=== PATIENT | male | born 1965 | race Caucasian/White ===

== ENCOUNTER → 2016-10-16 | Outpatient (CLI) | payer BC ==
[2015-08-06 13:50] VITALS: BP 120/60
[~2016-10-16] MED LIST: ALLO300T PO; FLUT1DIS IH; LEVO50TA5 PO; OLME1TAB27 PO; VENTOLIN HFA18 GM IH
== END | disposition home or self-care (01) ==
LOC: LAB 11:30
PROVIDERS: ATTEND Nurse Practitioner Occupational Health
DX: N40.1 Benign prostatic hyperplasia with lower urinary tract symptoms (principal)
CPT/HCPCS: 36415; G0103

== ENCOUNTER 2016-11-05 05:59 | Day surgery (SDC) | payer BC ==
[~2016-11-05] VITALS: Ht 167.6 cm; Wt 86.2 kg
[~2016-11-05 05:59] MED LIST changes: +IBUP200T43 PO; +MONT10TA9 PO
[2016-11-05] MEDS ORDERED: CEFAZOLIN 1GM IVPB FOR OMNI 50 ML IV ONE (06:00)
[2016-11-05] MEDS ORDERED: ONDANSETRON PF 4 MG/2 ML VIAL. IV PRN ×2 (07:00)
[2016-11-05] MEDS ORDERED: HYDROMORPHONE 2 MG/ML VIAL. IV PRN ×2 (07:00)
[2016-11-05] MEDS ORDERED: MORPHINE SULFATE 2 MG/ML DISP.SYRIN. IV PRN ×2 (07:00)
[2016-11-05] MEDS ORDERED: IV RINGERS,LACTATED 1000ML 1,000 ML IV SCH ×2 (07:00)
[2016-11-05] MEDS ORDERED: LIDOCAINE 1% 1 ML SYRINGE. ID PRN ×2 (07:00)
[2016-11-05] MEDS ORDERED: PROCHLORPERAZINE 10 MG/2 ML VIAL. IV PRN ×2 (07:00)
[2016-11-05] MEDS ORDERED: FENTANYL PF 100 MCG/2 ML VIAL. IV PRN ×4 (07:00)
[2016-11-05] MEDS ORDERED: DEXAMETHASONE SOD PHOS 20 MG/5 ML VIAL. ONE ×2 (07:40→08:24)
[2016-11-05] MEDS ORDERED: ROPIVacaine 0.5% PF 30 ML VIAL. ONE (07:40)
[2016-11-05] MEDS ORDERED: MIDAZOLAM HCL 2 MG/2 ML VIAL. ONE (07:40)
[2016-11-05] MEDS ORDERED: LIDOCAINE 1% Multi-Dose 20 ML VIAL. ONE (07:40)
[2016-11-05] MEDS ORDERED: EPINEPHRINE 30 MG/30 ML VIAL. ONE (07:49)
[2016-11-05] MEDS ORDERED: BUPIVACAINE MPF 0.5% 30 ML VIAL. ONE (07:49)
[2016-11-05] MEDS ORDERED: LIDOCAINE 1% PF 30 ML VIAL. ONE (07:49)
--- NOTE | 2016-11-05 08:04 | DISCH ---
DISCHARGE INSTRUCTIONS Condition on Discharge Condition on Discharge: Stable Activity After Discharge Activity Instructions for Disc: Other, see below Other activity instructions: arm to remain Bathing Instructions: Shower-keep dressing dry Weight Bearing Status after Di: Non weight bearing Diet after Discharge Diet after Discharge: Regular Wound Incision Care Wound/Incision Care: Ice to area for comfort, Change dressing Contacting the DRQuique after DC Call your doctor for: Concerns you may have Follow-Up Follow up with: María in 2wks MIGUEL POWER II, MD Nov 05, 2016 08:04
--- NOTE | 2016-11-05 08:10 | PDOC ---
BRIEF OPERATIVE NOTE Date: Nov 05, 2016 Pre-Op Diagnosis R RTC tear Post-Op Diagnosis same Procedure Performed R shoulder scope, RTC repair Surgeon María Armas Anesthesia Type: General Blood Loss 10mL Complications none MIGUEL POWER II, MD Nov 05, 2016 08:10
[2016-11-05] MEDS ORDERED: ONDANSETRON PF 4 MG/2 ML VIAL. ONE (08:24)
[2016-11-05] MEDS ORDERED: LIDOCAINE 2% 100 MG/5 ML DISP.SYRIN. ONE (08:24)
[2016-11-05] MEDS ORDERED: PROPOFOL 20 ML IV ONE (08:24)
[2016-11-05] MEDS ORDERED: PHENYLEPHRINE in 0.9% NACL PF 1 MG/10 ML DISP.SYRIN. IV ONE (09:00)
[2016-11-05] MEDS ORDERED: SEVOFLURANE 61 TO 120 MINUTES. IH ONE (09:22)
[2016-11-05] MEDS ORDERED: ROCURONIUM 50 MG/5 ML VIAL. ONE (09:23)
[2016-11-05] MEDS ORDERED: NEOSTIGMINE METHYLSULFATE 5 MG/5 ML SYRINGE. ONE (09:23)
[2016-11-05] MEDS ORDERED: GLYCOPYRROLATE 1 MG/5 ML VIAL. ONE (09:23)
[2016-11-05] MEDS ORDERED: OXYC-323 PO (09:58)
[2016-11-05] MEDS ORDERED: ONDA4TAB10 SL (10:00)
[2016-11-05] MEDS ORDERED: DOCU-27 PO (10:01)
[2016-11-05] MEDS ORDERED: OXYCODONE/APAP 5/325 TABLET. PO ONE ×2 (10:15)
[2016-11-05 11:00] VITALS: BP 110/65
--- NOTE | 2016-11-05 11:54 | OP ---
DATE OF SURGERY: 11/05/2016 SURGEON: Todd Power M.D. FINISH PHOTOGRAPHER: Alexia Armas. ANESTHESIA: General plus regional nerve block. PREOPERATIVE DIAGNOSIS: Right shoulder rotator cuff tear. POSTOPERATIVE DIAGNOSIS: Right shoulder rotator cuff tear. PROCEDURE PERFORMED: Arthroscopic rotator cuff repair. COMPONENTS INSERTED: Levy [employer] Nephew large, 1.9 mm, SUTUREFIX anchors. COMPLICATIONS: None. ESTIMATED BLOOD LOSS: 10 mL. FINDINGS: 1. The patient had some degenerative fraying at his labrum, but his superior labrum was attached. He had a prominent middle glenohumeral ligament. Remainder of his labrum was intact circumferentially. He had no pathological changes at glenoid or humeral head. 2. Biceps had some minor fraying, but demonstrated gross integrity on inspection. 3. No loose bodies and subcoracoid axillary recesses. 4. He had a full thickness tear of the supraspinatus involving the entire tendon. COMPLICATIONS: None. REASON FOR PROCEDURE: The patient is a very pleasant 51-year-old gentleman with persistent shoulder pain that failed physical therapy and an injection. Because of this and after clinical examination and review of the MRI, we had discussion of risks, benefits, alternatives of proceeding with the above surgery and he elected to proceed. DESCRIPTION OF PROCEDURE: The patient was greeted in the preoperative area by myself where the correct extremity was marked and verified. He was taken to the operative suite and antibiotics were started en route. Once in the OR, he was transferred gently supine to the OR table and then had successful induction of general anesthesia. It should be noted that prior to coming back to the OR, he had placement of regional nerve block by the anesthesiology team. Once in the OR and on the bed, we then set him up in a modified beach chair position with all pressure points padded. A C-spine was maintained in neutral position. After this, we proceeded to prep and drape the right upper extremity in our usual sterile fashion including Ioban around the periphery. We then conducted a standard preoperative timeout. After this, I palpated and marked the surface anatomy. I then gained entry to the glenohumeral joint with a spinal needle to posterosuperior portal. I then incised skin in accordance with this. I introduced blunt arthroscopic trocar followed by the camera into the glenohumeral joint and then used the spinal needle to localize an anterosuperior portal and incised skin in accordance with this. I used a switching stick to dilate the hole and then inserted my probe and conducted my diagnostic arthroscopy with the above noted findings. I then removed the probe and inserted the shaver and debrided some of the labrum as well as the rotator cuff from an intra-articular vantage point. I then withdrew the arthroscopic instrumentation and replaced the camera in the subacromial space, and performed a bursectomy with combination of shaver and electrocautery. I then continued debriding the tendon and footprint taking care not to decorticate the bone. After this, I used an accessory lateral portal under spinal needle localization to place my two suture anchors in the footprint. I then created another accessory anterolateral portal with spinal needle localization for suture passage. I pulled all the sutures out through this and then I proceeded to use the Lvey and NephVeeqo Fast-Fix device through a lateral portal and cannula to pass my sutures in a simple configuration from posterior to anterior and then I tied these down using arthroscopic knot tying techniques. I inspected my tear with gentle rotation of the arm as well as with probing and felt it was solid and stable. I then cut the suture ends. I removed all excess arthroscopic fluid and the arthroscopic instrumentation. The portals and stab incisions were closed with simple interrupted nylon. The patient's right upper extremity was then cleansed and dried and sterile dressing was applied. He was placed into abduction pillow sling. Postop plan is nonweightbearing x 6 weeks. We will get him started on physical therapy later this week or early next week. He will follow up with me in 2 weeks, sooner should problems arise. TODD POWER MD DR: KRISTEN/anitha JOB#: [id number] / [id number]
== END 2016-11-05 11:19 | disposition home or self-care (01) ==
LOC: SURG 05:59
PROVIDERS: ATTEND Orthopaedic Surgery Sports Medicine
DX: S46.011A Strain of muscle(s) and tendon(s) of the rotator cuff of right shoulder, initial encounter (principal); E78.00 Pure hypercholesterolemia, unspecified; I10 Essential (primary) hypertension; J45.909 Unspecified asthma, uncomplicated; E03.9 Hypothyroidism, unspecified; M19.90 Unspecified osteoarthritis, unspecified site; X58.XXXA Exposure to other specified factors, initial encounter; Y93.9 Activity, unspecified; Y92.9 Unspecified place or not applicable; Y99.9 Unspecified external cause status
CPT/HCPCS: 29827; C1782; J0171; J0690; J1100; J2250; J2370; J2405; J2704; J2710; J2795; J3010; J3490; J7120

== ENCOUNTER → 2017-11-23 | Outpatient (CLI) | payer BC | END | disposition home or self-care (01) | LOC: KCIC MRI 07:37 | DX: M75.122 Complete rotator cuff tear or rupture of left shoulder, not specified as traumatic (principal); R60.0 Localized edema | CPT/HCPCS: 73221 ==

== ENCOUNTER → 2020-08-03 | Outpatient (CLI) | payer BC ==
[~2020-08-03] MED LIST changes: +DOCU-109 PO; -IBUP200T43 PO; +IBUP200T44 PO; +MONT10TA49 PO; -MONT10TA9 PO; +ONDA4TAB10 SL; +OXYC1TAB15 PO
--- NOTE | 2020-08-03 15:24 | KCIC ---
EXAMINATION: MRI RIGHT KNEE WITHOUT IV CONTRAST CLINICAL HISTORY: Right knee pain in the last 2 weeks after bending down. Pain is anterior. TECHNIQUE: Multiplanar multisequential images obtained through the knee without intravenous contrast. COMPARISON: None FINDINGS: MENISCI: Medial Meniscus: Probable complex tear in the body with mild extrusion Lateral Meniscus: Degenerative signal changes and mild fraying of the free edge in the body without definite tear LIGAMENTS: ACL: Intact PCL: Intact MCL: Intact LCL Complex: Intact CARTILAGE: Medial Femoral Condyle: Moderate sized area(s) of low grade (less than 50% thickness) partial thickness cartilage loss and or fissuring in the weightbearing portion of the condyle Medial Tibial Plateau: Normal Lateral Femoral Condyle: Normal Lateral Tibial Plateau: Normal Patella: Normal Trochlea: Normal TENDONS: The distal quadriceps and patellar tendons are intact. The popliteus tendon is intact. BONES AND MARROW: No evidence of acute fracture or suspicious marrow replacing process. MUSCLES: Muscle bulk and signal intensity within normal limits. JOINT FLUID AND SYNOVIUM: Trace joint effusion. No synovitis. No Walter's cyst. IMPRESSION: Probable complex medial meniscus tear with extrusion. Degenerative fraying in the lateral meniscus without definite tear. Electronically signed by: Ezio Good DO (08/03/2020 3:21 PM) [id number]
== END ==
LOC: KCIC MRI 12:26
PROVIDERS: ATTEND Family Medicine
DX: M25.561 Pain in right knee (principal); G89.29 Other chronic pain
CPT/HCPCS: 73721

== ENCOUNTER → 2020-08-21 | Outpatient (CLI) | payer BC | LOC: SPEC 10:14 | PROVIDERS: ATTEND Physician Assistant | DX: M65.9 Synovitis and tenosynovitis, unspecified (principal) | CPT/HCPCS: 87071; 87075 ==